=== PATIENT | male | born 1955 ===

== ENCOUNTER 2021-09-30 06:49 | Day surgery (SDC) | payer OTHER ==
[~2021-09-30 06:49] MED LIST: AVALIDE 300-121 EACH PO; GABA PO; MOBIC15 MG PO; PERCOC PO; TRICOR145 MG PO; VERELAN240 MG PO; ZESTRIL40 M1 PO
[2021-09-30] MEDS ORDERED: PERCOCET 5-3251 EACH PO (10:50)
[2021-09-30] MEDS ORDERED: ECONAZOLE NIT 130 GM TOP (10:55)
== END 2021-09-30 15:30 | disposition home or self-care (01) ==
LOC: CIR.AMB 06:49
PROVIDERS: ATTEND Surgery
DX: N52.01 Erectile dysfunction due to arterial insufficiency (principal); Z20.822 Contact with and (suspected) exposure to COVID-19
CPT/HCPCS: 54405; C1813